=== PATIENT | female | born 2000 | race Caucasian/White ===

== ENCOUNTER 2023-08-31 10:39 | Emergency (ER) | payer OTHER ==
[~2023-08-31] VITALS: Ht 165.1 cm; Wt 61.7 kg
[2023-08-31 10:48] VITALS: BP 126/90; PULSE 84; RESP 18; TEMP 97.8; O2SAT 99
[2023-08-31] MEDS: ACETAMINOPHEN EXTRA STRENGTH 500 MG TAB PO ONE (12:16)
[2023-08-31] MEDS: IBUPROFEN 600 MG TAB PO ONE (12:17)
[2023-08-31] MEDS ORDERED: CYCL-711 PO (13:21)
[2023-08-31] MEDS ORDERED: DICL100G32 TP (13:21)
[2023-08-31] MEDS ORDERED: IBUP-1842 PO (13:21)
[2023-08-31 14:01] VITALS: BP 100/77; PULSE 88; RESP 17; TEMP 97.8; O2SAT 100
== END 2023-08-31 14:01 | disposition home or self-care (01) ==
LOC: MED 10:39
DX: S16.1XXA Strain of muscle, fascia and tendon at neck level, initial encounter (principal); R07.89 Other chest pain; Z79.899 Other long term (current) drug therapy; V49.88XA Car occupant (driver) (passenger) injured in other specified transport accidents, initial encounter; Y93.89 Activity, other specified; Y92.89 Other specified places as the place of occurrence of the external cause; Y99.8 Other external cause status
CPT/HCPCS: 71046; 72050; 81025; 99284